=== PATIENT | male | born 1985 | race Caucasian/White ===

== ENCOUNTER 2021-06-03 16:07 | Emergency (ER) | payer OTHER ==
[~2021-06-03] VITALS: Ht 175.3 cm; Wt 86.2 kg
== END 2021-06-03 18:21 | disposition home or self-care (01) ==
LOC: ER 16:07 → CPU-OBS 16:29 → ER 18:21
DX: R06.02 Shortness of breath (principal); R53.81 Other malaise; T75.1XXA Unspecified effects of drowning and nonfatal submersion, initial encounter; W69.XXXA Accidental drowning and submersion while in natural water, initial encounter; Y93.89 Activity, other specified; Y92.832 Beach as the place of occurrence of the external cause; Y99.8 Other external cause status